=== PATIENT | male | born 1980 | race Caucasian/White ===

== ENCOUNTER 2016-06-10 08:38 | Emergency (ER) | payer SELFPAY ==
[~2016-06-10] VITALS: Wt 79.0 kg
--- NOTE | 2016-06-10 10:18 | ERD ---
ER Documentation Chief Complaint Date/Time DATE: 06/10/16 Chief Complaint Anxious after meth use last night HPI The patient is a 36-year-old male who presents to the Emergency Department for evaluation s/p meth use. The patient reports that this morning while with his friend, he smoked crystal meth, and took a Viagra along with it. Shortly afterwards he began to feel jittery, and had some tingling around both hands. He felt slightly anxious, and therefore requested that a friend drive him to the Emergency Department. However, upon arriving at the ED, he now feels much improved. He denies any nitrate use. He notes that he has smoked crystal meth in the past, though this was his first time taking Viagra. Denies any prolonged erection or genital/penile pain. Denies any chest pain, palpitations , shortness of breath. Denies lower extremity edema. Denies nausea, vomiting, abdominal pain. Denies suicidal ideation, homicidal ideation, hallucinations or delusions. He has no other complaints or concerns at this time. ROS All systems reviewed and are negative except as per history of present illness. Allergies Allergies: Coded Allergies: No Known Allergy (Unverified , 06/10/16) PMhx/Soc Medical and Surgical Hx: pt denies Medical Hx, pt denies Surgical Hx Hx Alcohol Use: No Hx Substance Use: No Hx Tobacco Use: No Smoking Status: Never smoker Physical Exam Vitals Vital Signs Date Time Temp Pulse Resp B/P Pulse Ox O2 Delivery O2 Flow Rate FiO2 06/10/16 09:45 98.0 98 18 160/75 99 Physical Exam Const: Well-developed, well-nourished, in no acute distress. Head: Atraumatic Eyes: Normal Conjunctiva ENT: Normal External Ears, Nose and Mouth. Neck: Supple. Full range of motion. Resp: Clear to auscultation bilaterally Cardio: Regular rate and rhythm, no murmurs Abd: Soft, non tender, non distended. Normal bowel sounds Skin: No petechiae or rashes Back: Full range of motion Ext: No cyanosis, or edema Neur: Awake and alert Psych: Cooperative. Appropriate. Results 24 hrs Current Medications Medications (Trade) Dose Ordered Sig/Billy Route PRN Reason Start Time Stop Time Status Last Admin Dose Admin Lorazepam (Ativan) 0.5 mg ONCE ONCE PO 2/10/17 10:30 06/10/16 10:31 DC 06/10/16 10:31 Procedures/MDM This is a 36-year-old male presenting to the Emergency Department due to feeling "jittery" after smoking crystal meth and taking a Viagra pill at the same time. Upon arrival to the ED, he was mostly asymptomatic, and had no new complaints or concerns. He denies chest pain, palpitations, shortness of breath. Doubt ACS given patient's inconsistent presentation. He has no homicidal or suicidal ideation. No hallucinations or delusions. He was given a dose of Ativan in the ED. On re-evaluation patient's symptoms had resolved. Upon my review and interpretation of the patient's presentation and ED course, I believe the patient's symptoms were secondary to recent meth use. The clinical presentation does not suggest an acute coronary syndrome, acute pulmonary embolism or any other emergent medical condition at this time. At this time the patient is in stable condition and therefore he can be discharged home with strict return precautions for signs of deteriorating or worsening condition. The patient is advised to follow up with a primary care provider within 2-3 days for re-evaluation and further management, or return to the ER sooner for any new or worsening symptoms. Additionally, the risks of continued illicit drug use were discussed, and the patient was advised to stop using crystal meth. I shared my medical decision making and plan with the patient and he verbally understands and agrees with the plan for further observation and care as an outpatient. At the time of discharge, all questions were answered. Departure Diagnosis: Primary Impression: Methamphetamine use Condition: Stable Patient Instructions: Understanding Methamphetamine Abuse and Addiction Additional Instructions: Llame al doctor PRATIK y latrell ozzy NKECHI PARA DENTRO DE 2-3 LOPEZ.Dgale a la secretaria que nosotros le instruimos hacer esta nkechi.Avise o llame si mckeon condicin se empeora antes de la nkechi. Regresa aqui si peor o no mejor. BRINAA MUSE PA-C Jun 10, 2016 10:18
[2016-06-10] MEDS ORDERED: LORAZEPAM 0.5 MG TAB PO ONE (10:30)
== END 2016-06-10 11:55 | disposition left against medical advice (07) ==
LOC: FTE 08:38
DX: F15.90 Other stimulant use, unspecified, uncomplicated (principal)
CPT/HCPCS: 99283